=== PATIENT | male | born 1965 | race Caucasian/White ===

== ENCOUNTER → 2023-09-15 11:38 | Outpatient (REF) | payer OTHER, SELFPAY | LOC: RAD 11:38 | PROVIDERS: ATTENDING PHYSICIAN Nurse Practitioner Family; FAMILY PHYSICIAN Family Medicine | DX: M54.6 Pain in thoracic spine (principal) | CPT/HCPCS: 72072 ==

== ENCOUNTER 2024-10-18 06:20 | Day surgery (SDC) | payer OTHER, SELFPAY | END 2024-10-18 11:25 | disposition home or self-care (01) | LOC: GI 06:20 | PROVIDERS: ATTENDING PHYSICIAN Internal Medicine Gastroenterology | DX: Z12.11 Encounter for screening for malignant neoplasm of colon (principal); K57.30 Diverticulosis of large intestine without perforation or abscess without bleeding; D12.8 Benign neoplasm of rectum; K64.8 Other hemorrhoids; Z86.0100 Personal history of colon polyps, unspecified; Z98.0 Intestinal bypass and anastomosis status | CPT/HCPCS: 45385; 88305 ==